=== PATIENT | female | born 1960 | race Caucasian/White ===

== ENCOUNTER 2017-09-22 06:48 | Observation (INO) | payer SELFPAY ==
[2017-09-22] VITALS (8 sets, daily range): BP systolic 128–208; BP diastolic 68–94; PULSE 74–88; RESP 14–28; TEMP 97.9–98.4; O2SAT 97–100
[~2017-09-22 06:48] MED LIST: NORC7.5T PO; PERC5TAB12 PO
[2017-09-22] MEDS ORDERED: SODIUM CHLOR 0.9% 1000 ML INJ 1,000 ML IV ONE (07:34)
--- NOTE | 2017-09-22 07:38 | PD ---
HPI Chief Complaint: General Weakness Time Seen by Provider: 07:34 Travel History International Travel<30 days: No Contact w/Intl Traveler<30days: No Traveled to known affect area: No History of Present Illness HPI 54-year-old female patient presents to the ER today, states that she has been having dizziness since yesterday, nauseous and throwing up. She states it worsens with standing up or getting up, he feels like she is unsteady. She denies any fevers, chest pains, shortness of breath, diarrhea, cough, cold symptoms, or other symptoms. She denies any previous history of symptoms. Modifying Factors: Worse with getting up Associated Signs & Symptoms: Dizziness, nausea and vomiting Risk Factors: None PFSH Past Medical History Medical History: Denies Significant Hx Diminished Hearing: No Menopausal: Yes Past Surgical History Abdominal Surgery: Yes (BREAST AUGMENTATION ABDOMINAL LIPO) Appendectomy: Yes Section: Yes (3) Tonsillectomy: Yes Other Surgery: Yes (LIP IMPLANTS) Social History Alcohol Use: Yes (ETOH DAILY) Tobacco Use: No Substance Use: No Allergies-Medications (Allergen,Severity, Reaction): Coded Allergies: No Known Allergies (Verified Adverse Reaction, Unknown, 09/22/17) Reported Meds & Prescriptions Reported Meds & Active Scripts Active No Active Prescriptions or Reported Medications Review of Systems Except as stated in HPI: all other systems reviewed are Neg Physical Exam Narrative GENERAL: Well-developed elderly white female patient in mild distress. Awake and oriented 3. SKIN: Focused skin assessment warm/dry. HEAD: Atraumatic. Normocephalic. EYES: Pupils equal and round. No scleral icterus. No injection or drainage. ENT: No nasal bleeding or discharge. Mucous membranes pink and moist. NECK: Trachea midline. No JVD. Supple. CARDIOVASCULAR: Regular rate and rhythm. No murmur appreciated. RESPIRATORY: No accessory muscle use. Clear to auscultation. Breath sounds equal bilaterally. GASTROINTESTINAL: Abdomen soft, non-tender, nondistended. Hepatic and splenic margins not palpable. MUSCULOSKELETAL: No obvious deformities. No clubbing. No cyanosis. No edema. NEUROLOGICAL: Awake and alert. No obvious cranial nerve deficits. Motor grossly within normal limits. Normal speech. No pronator drift. PSYCHIATRIC: Appropriate mood and affect; insight and judgment normal. Data Data Last Documented VS Vital Signs Date Time Temp Pulse Resp B/P (MAP) Pulse Ox O2 Delivery O2 Flow Rate FiO2 09/22/17 09:40 74 16 178/88 (118) 100 Room Air 09/22/17 06:51 97.9 Orders Orders Electrocardiogram (09/22/17 07:34) Complete Blood Count With Diff (09/22/17 07:34) Comprehensive Metabolic Panel (09/22/17 07:34) Magnesium (Mg) (09/22/17 07:34) Ckmb (Isoenzyme) Profile (09/22/17 07:34) Troponin I (09/22/17 07:34) Urinalysis - C+S If Indicated (09/22/17 07:34) Chest, Single Ap (09/22/17 07:34) Ct Brain W/O Iv Contrast(Rout) (09/22/17 07:34) Ecg Monitoring (09/22/17 07:34) Iv Access Insert/Monitor (09/22/17 07:34) Oximetry (09/22/17 07:34) Ondansetron Inj (Zofran Inj) (09/22/17 07:45) Sodium Chloride 0.9% Flush (Ns Flush) (09/22/17 07:45) Sodium Chlor 0.9% 1000 Ml Inj (Ns 1000 M (09/22/17 07:34) Orthostatic Vital Signs (09/22/17 07:34) Urine Culture (09/22/17 07:50) Meclizine (Antivert) (09/22/17 09:15) Sulfamet-Trimeth Ds 800-160 Mg (Bactrim (09/22/17 09:15) Labs Laboratory Tests Test 09/22/17 07:50 09/22/17 08:00 Urine Color YELLOW Urine Turbidity HAZY Urine pH 7.5 Urine Specific [place] 1.020 Urine Protein TRACE mg/dL Urine Glucose (UA) NEG mg/dL Urine Ketones NEG mg/dL Urine Occult Blood NEG Urine Nitrite NEG Urine Bilirubin NEG Urine Urobilinogen LESS THAN 2.0 MG/DL Urine Leukocyte Esterase MOD Urine RBC 2 /hpf Urine WBC 15 /hpf Urine Squamous Epithelial Cells 8 /hpf Urine Transitional Epithelial Cells 1 /hpf Urine Renal Epithelial Cells <1 /hpf Urine Bacteria FEW /hpf Urine Mucus FEW /lpf Microscopic Urinalysis Comment CULTURE INDICATED White Blood Count 8.9 TH/MM3 Red Blood Count 4.34 MIL/MM3 Hemoglobin 14.2 GM/DL Hematocrit 40.8 % Mean Corpuscular Volume 94.1 FL Mean Corpuscular Hemoglobin 32.8 PG Mean Corpuscular Hemoglobin Concent 34.8 % Red Cell Distribution Width 13.6 % Platelet Count 302 TH/MM3 Mean Platelet Volume 8.4 FL Neutrophils (%) (Auto) 77.0 % Lymphocytes (%) (Auto) 16.8 % Monocytes (%) (Auto) 5.5 % Eosinophils (%) (Auto) 0.4 % Basophils (%) (Auto) 0.3 % Neutrophils # (Auto) 6.8 TH/MM3 Lymphocytes # (Auto) 1.5 TH/MM3 Monocytes # (Auto) 0.5 TH/MM3 Eosinophils # (Auto) 0.0 TH/MM3 Basophils # (Auto) 0.0 TH/MM3 CBC Comment DIFF FINAL Differential Comment Blood Urea Nitrogen 13 MG/DL Creatinine 0.69 MG/DL Random Glucose 100 MG/DL Total Protein 8.1 GM/DL Albumin 4.0 GM/DL Calcium Level 9.2 MG/DL Magnesium Level 2.0 MG/DL Alkaline Phosphatase 141 U/L Aspartate Amino Transf (AST/SGOT) 21 U/L Alanine Aminotransferase (ALT/SGPT) 33 U/L Total Bilirubin 0.4 MG/DL Sodium Level 135 MEQ/L Potassium Level 4.5 MEQ/L Chloride Level 101 MEQ/L Carbon Dioxide Level 24.2 MEQ/L Anion Gap 10 MEQ/L Estimat Glomerular Filtration Rate 87 ML/MIN Total Creatine Kinase 78 U/L Troponin I LESS THAN 0.02 NG/ML MDM Medical Decision Making Medical Screen Exam Complete: Yes Emergency Medical Condition: Yes Medical Record Reviewed: Yes Interpretation(s) EKG shows NSR, no ST elevation or depression, and no arrhythmias. No significant T-wave inversions. Laboratory Tests Test 09/22/17 07:50 09/22/17 08:00 Urine Turbidity HAZY (CLEAR) Urine Leukocyte Esterase MOD (NEG) Urine WBC 15 /hpf (0-5) Urine Bacteria FEW /hpf (NONE) Urine Mucus FEW /lpf (OCC) Neutrophils (%) (Auto) 77.0 % (16.0-70.0) Alkaline Phosphatase 141 U/L (45-117) Sodium Level 135 MEQ/L (136-145) Estimat Glomerular Filtration Rate 87 ML/MIN (>89) Troponin I LESS THAN 0.02 NG/ML Last [address] 09/22/17733 Signed Impressions: Service Date/Time: September 08:21 - CONCLUSION: 1. Negative examination. Abdullahi Shipman MD Chest X-Ray 09/22/17733 Signed Impressions: Service Date/Time: September 07:50 - CONCLUSION: Trace left base atelectasis. Jose Cooney MD Differential Diagnosis Dizziness, nausea and vomiting: Orthostasis versus gastroenteritis versus dehydration versus metabolic issues versus vertigo versus acute intracranial processes/CVA Narrative Course CT of the brain is negative. EKG did not show any signs of acute dysrhythmias. She does have orthostasis on vital signs. IV fluids was given in the ER. She has a UTI and Bactrim was also given. She was given Zofran. I do not see any obvious focal neurological deficits currently. However, patient states that she is quite wobbly on standing at home and is worried that she is going to fall at home, has nobody else living with her. At this point, my plan would be to treat her further as an observation. Case is discussed with Dr. Nguyen for admission. Diagnosis Primary Impression: Dizziness Additional Impression: UTI (urinary tract infection) Admitting Information Admitting Physician Requests: Admit Scripts No Active Prescriptions or Reported Meds Theodore Munoz MD Sep 22, 2017 07:38
[2017-09-22] MEDS ORDERED: SODIUM CHLORIDE 0.9% FLUSH 10 ML FLUSH IVF PRN (07:45)
[2017-09-22] MEDS ORDERED: ONDANSETRON HCL 4 MG/2 ML VIAL IVP ONE (07:45)
--- NOTE | 2017-09-22 08:05 | RADRPT ---
EXAM DATE/TIME: 09/22/2017 07:50 [facility] COMPARISON: No previous studies available for comparison. INDICATIONS : Palpitations and dizziness. MEDICAL HISTORY : None. SURGICAL HISTORY : None. ENCOUNTER: Initial ACUITY: 1 day PAIN SCORE: 0/10 LOCATION: Bilateral chest FINDINGS: Minimal left base atelectasis. Right lung clear. No effusion or pneumothorax. Heart size normal. CONCLUSION: Trace left base atelectasis. Jose Cooney MD on September 22, 2017 at 8:03 Board Certified Radiologist. This report was verified electronically.
[2017-09-22 08:29] LABS: BILIRUBIN, URINE NEG (NEG); BLOOD, URINE NEG (NEG); GLUCOSE,URINE NEG (NEG); KETONE, URINE NEG (NEG); MUCUS URINE FEW /lpf (OCC); NITRITE,URINE NEG (NEG); PH, URINE 7.5 (5.0-8.5); RENAL EPITHELIAL CELLS <1 /hpf; SQUAMOUS EPITHELIAL CELL URINE 8 /hpf (0-5); TRANSITIONAL EPI CELLS, URINE 1 /hpf; URINE COLOR YELLOW (YELLW/STRAW); URINE LEUKOCYTE ESTERASE MOD (NEG)
[2017-09-22 08:30] LABS: BACTERIA, URINE FEW /hpf
[2017-09-22 08:32] LABS: AUTOMATED NEUTROPHIL # 6.8 TH/MM3 (1.8-7.7); BASOPHIL % 0.3 % (0.0-2.0); EOSINOPHIL % 0.4 % (0.0-4.0); HEMATOCRIT 40.8 % (35.0-46.0); HEMOGLOBIN 14.2 GM/DL (11.6-15.3); LYMPH % 16.8 % (9.0-44.0); LYMPHOCYTE # 1.5 TH/MM3 (1.0-4.8); MEAN CELL VOLUME 94.1 FL (80.0-100.0); MEAN CORPUSCULAR HEMOGLOBIN 32.8 PG (27.0-34.0); MEAN CORPUSCULAR HGB CONC 34.8 % (32.0-36.0); MEAN PLATELET VOLUME 8.4 FL (7.0-11.0); MONO % 5.5 % (0.0-8.0); MONOCYTE # 0.5 TH/MM3 (0-0.9); PLATELET COUNT 302 TH/MM3 (150-450); RED BLOOD COUNT 4.34 MIL/MM3 (4.00-5.30); RED CELL DISTRIBUTION WIDTH 13.6 % (11.6-17.2); WHITE BLOOD COUNT 8.9 TH/MM3 (4.0-11.0)
--- NOTE | 2017-09-22 08:51 | RADRPT ---
EXAM DATE/TIME: 09/22/2017 08:21 [facility] COMPARISON: No previous studies available for comparison. INDICATIONS : Dizziness and nausea for 2 days. RADIATION DOSE: 33.97 CTDIvol (mGy) MEDICAL HISTORY : None SURGICAL HISTORY : None. ENCOUNTER: Initial ACUITY: 1 day PAIN SCALE: 0/10 LOCATION: cranial TECHNIQUE: Multiple contiguous axial images were obtained of the head. Using automated exposure control and adj ustment of the mA and/or kV according to patient size, radiation dose was kept as low as reasonably a chievable to obtain optimal diagnostic quality images. DICOM format image data is available electro nically for review and comparison. FINDINGS: CEREBRUM: The ventricles are normal for age. No evidence of midline shift, mass lesion, hemorrhage or acute in farction. No extra-axial fluid collections are seen. POSTERIOR FOSSA: The cerebellum and brainstem are intact. The 4th ventricle is midline. The cerebellopontine angle i s unremarkable. EXTRACRANIAL: The visualized portion of the orbits is intact. SKULL: The calvaria is intact. No evidence of skull fracture. CONCLUSION: 1. Negative examination. Abdullahi Shipman MD on September 22, 2017 at 8:48 Board Certified Radiologist. This report was verified electronically.
[2017-09-22 08:52] LABS: ALKALINE PHOSPHATASE 141 U/L (45-117); ALT (GPT) 33 U/L (10-53); AST (GOT) 21 U/L (15-37); BICARBONATE 24.2 MEQ/L (21.0-32.0); BLOOD UREA NITROGEN 13 MG/DL (7-18); CALCIUM 9.2 MG/DL (8.5-10.1); CHLORIDE 101 MEQ/L (98-107); CREATININE 0.69 MG/DL (0.50-1.00); GLOMERULAR FILTRATION RATE 87 ML/MIN (>89); GLUCOSE,RANDOM 100 MG/DL (74-106); SODIUM (NA) 135 MEQ/L (136-145); TOTAL BILIRUBIN ADULT 0.4 MG/DL (0.2-1.0); TOTAL PROTEIN 8.1 GM/DL (6.4-8.2); TROPONIN I LESS THAN 0.02 NG/ML (0.02-0.05)
[2017-09-22] MEDS ORDERED: SULFAMETHOXAZOLE-TRIMETHOPRIM DS 800-160 MG TAB PO ONE (09:15)
[2017-09-22] MEDS ORDERED: MECLIZINE HCL 25 MG TAB PO ONE (09:15)
--- NOTE | 2017-09-22 10:28 | HHI.HP ---
HPI Service [facility] Hospitalists Primary Care Physician No Primary Care Physician Admission Diagnosis orthostasis/UTI/dizziness Diagnoses: Chief Complaint: Dizziness Nausea/vomiting Travel History International Travel<30 Days: No Contact w/Intl Traveler <30 Da: No Traveled to Known Affected Are: No History of Present Illness Written by Amy Adler, acting as scribe for Dr. Powers on 09/22/17 at 10: 15. This is a 57-year-old female without a significant past medical history who presents to [facility] ED with complaints of sudden onset of dizziness 1 day. Patient states that yesterday she developed sudden onset of dizziness that continued to progress throughout the day despite her resting. Patient states became so severe that she is unable to walk or even stand up. She she endorses 2 episodes of nausea and vomiting early this morning. She states that she is also had blurry vision and double vision. She denies any complaints of headache, weakness, numbness/tingling or slurred speech. She reports tinnitus in the right ear this morning as well as some right ear pain yesterday for which she took Motrin. She denies any hearing loss. She denies any drainage from the ear. Patient denies any worsening of dizziness turning her head left to right but does report exacerbation sitting up. Patient's only other complaint is intermittent hot flashes for the past week much worse last night causing her to sweat so badly she turned on the air-conditioning despite the cold weather. Patient denies any recent illness. She states she is very healthy. She goes to the gym 4 times a week. She does not take any medications. She denies any drug use. In the ED, CT of the head was obtained which was unremarkable. Review of Systems Except as stated in HPI: all other systems reviewed are Neg Past Family Social History Past Medical History Patient denies any previous medical history Past Surgical History 3 Appendectomy Breast augmentation Reported Medications Patient denies taking any medications at home Allergies: Coded Allergies: No Known Allergies (Verified Allergy, Unknown, 09/22/17) Active Ordered Medications Current Medications Medications (Trade) Dose Ordered Sig/Nelly Route Start Time Stop Time Status Last Admin (NS Flush) 2 ml UNSCH PRN IVF 09/22/17 07:45 Sodium Chloride 1,000 ml @ 100 mls/hr Q10H ONCE IV 09/22/17 07:34 09/22/17 17:33 09/22/17 07:54 Family History Father, age 83, healthy Social History Patient has remote history of tobacco use having quit more than 35 years ago. She admits to alcohol consumption of several classes of [place]ardon[place] nightly. She denies any illicit drug use. Patient states she is very active. She goes gym 4 times a week. Physical Exam Vital Signs Vital Signs Date Time Temp Pulse Resp B/P (MAP) Pulse Ox O2 Delivery O2 Flow Rate FiO2 09/22/17 09:40 74 16 178/88 (118) 100 Room Air 09/22/17 07:54 67 14 180/80 (113) 74 18 171/80 (110) 77 28 153/91 (111) 09/22/17 07:48 (130) Room Air 09/22/17 07:26 80 20 203/94 (130) 100 Room Air 184/92 (122) 09/22/17 07:23 77 09/22/17 06:51 97.9 79 16 174/85 (114) 100 Physical Exam GENERAL: This is a well-nourished, well-developed female patient, in no apparent distress. Awake and alert. Upset, tearful. SKIN: No rashes, ecchymoses or lesions. Cool and dry. HEAD: Atraumatic. Normocephalic. No temporal or scalp tenderness. EYES: Pupils equal round and reactive. Extraocular motions intact. No scleral icterus. No injection or drainage. ENT: Nose without bleeding or purulent drainage. Small amount of cerumen noted in left ear canal otherwise normal. Right ear nontender, canal unremarkable, TM normal, no evidence of infection, no fluid appreciated. Throat without erythema, tonsillar hypertrophy or exudate. Uvula midline. Airway patent. NECK: Trachea midline. No lymphadenopathy. Supple, nontender, no meningeal signs. CARDIOVASCULAR: Regular rate and rhythm without murmurs, gallops, or rubs. RESPIRATORY: Clear to auscultation. Breath sounds equal bilaterally. No wheezes , rales, or rhonchi. GASTROINTESTINAL: Abdomen soft, non-tender, nondistended. No hepato-splenomegaly , or palpable masses. No guarding. MUSCULOSKELETAL: Extremities without clubbing, cyanosis, or edema. No joint tenderness, effusion, or edema noted. No calf tenderness. NEUROLOGICAL: Awake and alert. Cranial nerves II through XII grossly intact. Motor and sensory grossly within normal limits. Five out of 5 muscle strength in all muscle groups. No focal neurologic findings. Normal speech. Laboratory Laboratory Tests Test 09/22/17 07:50 09/22/17 08:00 Urine Color YELLOW Urine Turbidity HAZY Urine pH 7.5 Urine Specific [place] 1.020 Urine Protein TRACE Urine Glucose (UA) NEG Urine Ketones NEG Urine Occult Blood NEG Urine Nitrite NEG Urine Bilirubin NEG Urine Urobilinogen LESS THAN 2.0 Urine Leukocyte Esterase MOD Urine RBC 2 Urine WBC 15 Urine Squamous Epithelial Cells 8 Urine Transitional Epithelial Cells 1 Urine Renal Epithelial Cells <1 Urine Bacteria FEW Urine Mucus FEW Microscopic Urinalysis Comment CULTURE INDICATED White Blood Count 8.9 Red Blood Count 4.34 Hemoglobin 14.2 Hematocrit 40.8 Mean Corpuscular Volume 94.1 Mean Corpuscular Hemoglobin 32.8 Mean Corpuscular Hemoglobin Concent 34.8 Red Cell Distribution Width 13.6 Platelet Count 302 Mean Platelet Volume 8.4 Neutrophils (%) (Auto) 77.0 Lymphocytes (%) (Auto) 16.8 Monocytes (%) (Auto) 5.5 Eosinophils (%) (Auto) 0.4 Basophils (%) (Auto) 0.3 Neutrophils # (Auto) 6.8 Lymphocytes # (Auto) 1.5 Monocytes # (Auto) 0.5 Eosinophils # (Auto) 0.0 Basophils # (Auto) 0.0 CBC Comment DIFF FINAL Differential Comment Blood Urea Nitrogen 13 Creatinine 0.69 Random Glucose 100 Total Protein 8.1 Albumin 4.0 Calcium Level 9.2 Magnesium Level 2.0 Alkaline Phosphatase 141 Aspartate Amino Transf (AST/SGOT) 21 Alanine Aminotransferase (ALT/SGPT) 33 Total Bilirubin 0.4 Sodium Level 135 Potassium Level 4.5 Chloride Level 101 Carbon Dioxide Level 24.2 Anion Gap 10 Estimat Glomerular Filtration Rate 87 Total Creatine Kinase 78 Troponin I LESS THAN 0.02 Date/Time Source Procedure Growth Status 09/22/17 07:50 Urine Random Urine Urine Culture Pending Received Result Diagram: 09/22/17 0800 09/22/17 0800 Imaging Last Impressions Head CT 09/22/17733 Signed Impressions: Service Date/Time: September 08:21 - CONCLUSION: 1. Negative examination. Abdullahi Shipman MD Chest X-Ray 09/22/17733 Signed Impressions: Service Date/Time: September 07:50 - CONCLUSION: Trace left base atelectasis. Jose Cooney MD Capmellissai VTE Risk Assessment Caprini VTE Risk Assessment: No/Low Risk (score <= 1) Caprini Risk Assessment Model Point Value = 1 Point Value = 2 Point Value = 3 Point Value = 5 Age 41-60 Minor surgery BMI > 25 kg/m2 Swollen legs Varicose veins or History of unexplained or recurrent spontaneous Oral contraceptives or hormone replacement Sepsis (< 1 month) Serious lung disease, including pneumonia (< 1 month) Abnormal pulmonary function Acute myocardial infarction Congestive heart failure (< 1 month) History of inflammatory bowel disease Medical patient at bed rest Age 61-74 Arthroscopic surgery Major open surgery (> 45 min) Laparoscopic surgery (> 45 min) Malignancy Confined to bed (> 72 hours) Immobilizing plaster cast Central venous access Age >= 75 History of VTE Family history of VTE Factor V Leiden Prothrombin [id number] Lupus anticoagulant Anticardiolipin antibodies Elevated serum homocysteine Heparin-induced thrombocytopenia Other congenital or acquired thrombophilia Stroke (< 1 month) Elective arthroplasty Hip, pelvis, or leg fracture Acute spinal cord injury (< 1 month) Prophylaxis Regimen Total Risk Factor Score Risk Level Prophylaxis Regimen 0-1 Low Early ambulation 2 Moderate Order ONE of the following: *Sequential Compression Device (SCD) *Heparin 5000 units SQ BID 3-4 Higher Order ONE of the following medications: *Heparin 5000 units SQ TID *Enoxaparin/Lovenox 40 mg SQ daily (WT < 150 kg, CrCl > 30 mL/min) *Enoxaparin/Lovenox 30 mg SQ daily (WT < 150 kg, CrCl > 10-29 mL/min) *Enoxaparin/Lovenox 30 mg SQ BID (WT < 150 kg, CrCl > 30 mL/min) AND/OR *Sequential Compression Device (SCD) 5 or more Highest Order ONE of the following medications: *Heparin 5000 units SQ TID (Preferred with Epidurals) *Enoxaparin/Lovenox 40 mg SQ daily (WT < 150 kg, CrCl > 30 mL/min) *Enoxaparin/Lovenox 30 mg SQ daily (WT < 150 kg, CrCl > 10-29 mL/min) *Enoxaparin/Lovenox 30 mg SQ BID (WT < 150 kg, CrCl > 30 mL/min) AND *Sequential Compression Device (SCD) Assessment and Plan Assessment and Plan 57-year-old female without a significant past medical history who presents to [facility] ED with complaints of sudden onset of dizziness, N/V and vision changes 1 day. Dizziness, N/V, vision changes, tinnitus right ear and unsteady gait Possible vertigo and/or orthostatic hypotension CT of the head unremarkable, images personally reviewed Obtain MRI of the brain and US carotids positive orthostatic BP measurements. Fall precautions. Trial of Meclizine IV Zofran prn PT eval/tx Hypertensive Patient denies any documented history of hypertension Possibly situational, related to anxiety Vasotec 1.25 mg IV prn with parameters Will continue to monitor BP and may initiate treatment if indicated Bacteriuria UA with moderate leukocytes, 15 white blood cells and few bacteria, culture indicated. Patient asymptomatic Follow up on urine culture results Hyponatremia Mild Patient treated with IV fluids in the ED Monitor DVT prophylaxis Bilateral SCD/LYDIA hose The above note was scibed by Ms.Shannon Adler ( EVAN). I attest that I had a [id number] encounter with the patient on the same day , and personally performed the physical exam and medical decision making and I reviewed the findings and the plan with the patient. Discussed Condition With ED physician, patient Amy Adler Sep 22, 2017 10:28 Lora Powers MD Sep 22, 2017 11:08
[2017-09-22] MEDS ORDERED: ENALAPRILAT 1.25 MG/ML VIAL IV PUSH PRN (10:30)
--- NOTE | 2017-09-22 11:42 | RADRPT ---
EXAM DATE/TIME: 09/22/2017 10:58 [facility] COMPARISON: No previous studies available for comparison. INDICATIONS : Transient ischemic attack. MEDICAL HISTORY : ETOH abuse. SURGICAL HISTORY : Tonsillectomy. Appendectomy. section. Breast augmentation. Abdominal lipo. Lip implants. ENCOUNTER: Initial ACUITY: 1 day PAIN SCORE: 10 LOCATION: Bilateral neck PEAK SYSTOLIC VELOCITIES (cm/sec): ICA/CCA RATIO: Right: 1.5 Left: 1.2 ICA: Right: 119 Left: 117 CCA: Right: 80 Left: 98 ECA: Right: 84 Left: 104 VERTEBRAL: Right: 74 antegrade Left: 82 antegrade Elevated flow velocities and ICA/CCA ratios have been found to correlate with increased degrees of vessel stenosis, calculated as percentage of diameter relative to a normal segment of distal ICA/CCA FINDINGS: RIGHT CAROTID: No significant stenosis is visualized. The waveforms are within normal limits. LEFT CAROTID: No significant stenosis is visualized. The waveforms are within normal limits. VERTEBRAL ARTERIES: Antegrade flow is seen in both vertebral arteries. MISCELLANEOUS: None. CONCLUSION: No hemodynamically significant stenosis. Baron Perrin MD on September 22, 2017 at 11:39 Board Certified Radiologist. This report was verified electronically.
[2017-09-22] MEDS ORDERED: GADODIAMIDE PF 287 MG/ML 5 ML VIAL (for RAD MRI) IV PUSH ONE (15:01)
--- NOTE | 2017-09-22 15:37 | RADRPT ---
EXAM DATE/TIME: 09/22/2017 14:45 [facility] COMPARISON: No previous studies available for comparison. INDICATIONS : Dizziness. CONTRAST: 12 cc Omniscan (gadodiamide) IV MEDICAL HISTORY : None. SURGICAL HISTORY : section. Appendectomy. Tonsillectomy. Breast augmentation. Liposuction. ENCOUNTER: Subsequent ACUITY: 1 day PAIN SCORE: 3/10 LOCATION: cranial TECHNIQUE: Multiplanar, multisequence MRI of the brain was performed both prior to and following the administrat ion of paramagnetic contrast. FINDINGS: CEREBRUM: The ventricles are normal for age. No evidence of midline shift, mass lesion, hemorrhage or acute in farction. No extraaxial fluid collections are seen. The pituitary gland and suprasellar cistern are normal in configuration. WHITE MATTER: No significant signal abnormalities are seen in the white matter. POSTERIOR FOSSA: The cerebellum and brainstem are intact. The 4th ventricle is midline. The cerebellopontine angle is unremarkable. The cerebellar tonsils are normal in position. DIFFUSION IMAGING: No focal areas of restricted diffusion are seen. No evidence of acute infarction. EXTRACRANIAL: The visualized portions of the orbits and paranasal sinuses are unremarkable. POST-CONTRAST: No abnormal areas of parenchymal or dural enhancement. No evidence of blood-brain barrier breakdown. CONCLUSION: 1. Negative examination. Abdullahi Shipman MD on September 22, 2017 at 15:31 Board Certified Radiologist. This report was verified electronically.
[2017-09-22] MEDS: MECLIZINE HCL 25 MG TAB PO PRN (18:53)
[2017-09-23 04:53] VITALS: BP 129/61; PULSE 70; RESP 18; TEMP 98; O2SAT 97
[2017-09-23] MEDS ORDERED: WALKER WHEELS/F1 MIS (07:49)
--- NOTE | 2017-09-23 07:50 | HHI.FF ---
Face to Face Verification Diagnosis: (1) Dizziness (2) Unsteady gait (3) Vertigo Home Health Nursing Order: Medical education Signs/symptoms of disease process Medication education-adverse effect Nursing assessment with vital signs I have seen patient Tracey Holder on 09/23/17. My clinical findings support the need for the requested home health care services because: Deconditioned w/ increased weakness High risk of falls I certify that my clinical findings support that this patient is homebound because: Unsteady gait/balance Unsafe to leave home unassisted Unable to use public transportation Amy Adler Sep 23, 2017 07:50
[2017-09-23 08:17] VITALS: BP 142/66; PULSE 70; RESP 20; TEMP 98.2; O2SAT 96
[2017-09-23] MEDS: MECLIZINE HCL 25 MG TAB PO PRN (08:41)
[2017-09-23] MEDS ORDERED: INFLUENZA VIRUS VACCINE (QUADRIVALENT) 0.5 ML SYR IM ONE (10:00)
[2017-09-23 11:55] VITALS: BP 159/85; PULSE 73; RESP 18; TEMP 98.6; O2SAT 94
--- NOTE | 2017-09-23 12:26 | HHI.PR ---
Subjective Remarks in no acute distress. denies chest pain or sob. dizziness is better. BP trend improved. Objective Vitals Vital Signs Date Time Temp Pulse Resp B/P (MAP) Pulse Ox O2 Delivery O2 Flow Rate FiO2 09/23/17 11:55 98.6 73 18 159/85 (109) 94 09/23/17 08:17 98.2 70 20 142/66 (91) 96 09/23/17 04:53 98.0 70 18 129/61 (83) 97 09/22/17 21:01 98.1 86 18 129/68 (88) 97 09/22/17 15:56 98.4 83 20 128/68 (88) 99 09/22/17 14:30 88 151/76 (101) 09/22/17 13:30 98.1 75 22 208/92 (130) 97 09/22/17 12:42 I/O 09/22/17 09/22/17 09/22/17 09/23/17 09/23/17 09/23/17 07:00 15:00 23:00 07:00 15:00 23:00 Intake Total 240 ml Balance 240 ml Intake Oral 240 ml Result Diagram: 09/22/17 0800 09/22/17 0800 Imaging Last Impressions Head CT 09/22/17 0734 Signed Impressions: Service Date/Time: September 08:21 - CONCLUSION: 1. Negative examination. Abdullahi Shipman MD Chest X-Ray 09/22/17 0734 Signed Impressions: Service Date/Time: September 07:50 - CONCLUSION: Trace left base atelectasis. Jose Cooney MD Carotid Artery Ultrasound 09/22/17 0000 Signed Impressions: Service Date/Time: September 10:58 - CONCLUSION: No hemodynamically significant stenosis. Baron Perrin MD Brain MRI 09/22/17 0000 Signed Impressions: Service Date/Time: September 14:45 - CONCLUSION: 1. Negative examination. Abdullahi Shipman MD Objective Remarks GENERAL: This is a well-nourished, well-developed patient, in no apparent distress. CARDIOVASCULAR: Regular rate and regular rhythm without murmurs, gallops, or rubs. RESPIRATORY: Clear to auscultation. Breath sounds equal bilaterally. No wheezes , rales, or rhonchi. GASTROINTESTINAL: Abdomen soft, non-tender, nondistended. Normal, active bowel sounds MUSCULOSKELETAL: Extremities without clubbing, cyanosis, or edema. NEURO: Alert & Oriented x4 to person, place, time, situation. Moves all ext x4 Medications and IVs Inpatient Medications Enalaprilat (Vasotec Inj) 1.25 mg Q8H PRN IV PUSH SBP>200, DBP>110 Last administered on 09/22/17at 13:36; Start 09/22/17 at 10:30 Influenza Virus Vaccine (Flu (Quadrivalent) Vaccine Inj) 0.5 ml ONCE ONCE IM ; Start 09/23/17 at 10:00; Stop 09/23/17 at 10:02; Status DC Meclizine HCl (Antivert) 25 mg Q8H PRN PO DIZZINESS Last administered on at 08:41; Start 09/22/17 at 10:30 Ondansetron HCl (Zofran Inj) 4 mg ONCE ONCE IVP Last administered on 09/22/17at 07:54; Start 09/22/17 at 07:45; Stop 09/22/17 at 07:46; Status DC Sodium Chloride 1,000 ml @ 100 mls/hr Q10H ONCE IV Last administered on at 07:54; Start 09/22/17 at 07:34; Stop 09/22/17 at 17:33; Status DC Sodium Chloride (NS Flush) 2 ml UNSCH PRN IVF FLUSH AFTER USING IV ACCESS; Start 09/22/17 at 07:45 Trimethoprim/ Sulfamethoxazole (Bactrim Ds 800-160 Mg) 1 tab ONCE ONCE PO Last administered on 09/22/17at 09:34; Start 09/22/17 at 09:15; Stop 09/22/17 at 09: 16; Status DC A/P Assessment and Plan A/P possible vertigo CT of the head unremarkable, images personally reviewed MRI brain negative. Fall precautions. Trial of Meclizine IV Zofran prn PT eval/tx Hypertension; BP has much improved. Patient denies any documented history of hypertension Possibly situational, related to anxiety Vasotec 1.25 mg IV prn with parameters BP monitoring as outpatient. Bacteriuria UA with moderate leukocytes, 15 white blood cells and few bacteria, culture indicated. Patient asymptomatic Follow up on urine culture results Hyponatremia Mild Patient treated with IV fluids in the ED Monitor DVT prophylaxis Bilateral SCD/LYDIA hose Discharge Planning dc home - today with [facility]. see med list. f/u ; pcp. Lora Powers MD Sep 23, 2017 12:25
[2017-09-23] MEDS ORDERED: MECL1TAB42 PO (14:36)
[2017-09-23 16:27] VITALS: BP 148/80; PULSE 70; RESP 20; TEMP 97.9; O2SAT 96
--- NOTE | 2017-09-23 19:14 | EKG ---
Date Performed: 09/22/2017 Time Performed: 08:08:16 PTAGE: 57 years EKG: Sinus rhythm NORMAL ECG PREVIOUS TRACING : 09/22/2017 08.07 DOCTOR: Adolph Rojas Interpretating Date/Time 09/27/2017 08:18:02
[2017-09-23 19:43] VITALS: BP_SYST 163; BP_SYST 180; BP_SYST 187; BP_DIAS 78; BP_DIAS 87; PULSE 84; RESP 16; TEMP 98.3; O2SAT 98
[2017-09-23 23:31] VITALS: BP_SYST 162; BP_SYST 164; BP_SYST 170; BP_DIAS 82; BP_DIAS 87; BP_DIAS 91; PULSE 78; RESP 17; TEMP 97.7; O2SAT 97
[2017-09-24 03:48] VITALS: BP_SYST 151; BP_SYST 156; BP_SYST 166; BP_DIAS 87; BP_DIAS 88; BP_DIAS 92; PULSE 74; RESP 17; TEMP 98; O2SAT 97
[2017-09-24 08:00] VITALS: BP_SYST 167; BP_SYST 168; BP_DIAS 82; BP_DIAS 87; PULSE 73; RESP 20; TEMP 96.5; O2SAT 100
[2017-09-24 12:00] VITALS: BP 153/86; PULSE 85; RESP 20; TEMP 97.4; O2SAT 98
[2017-09-24] MEDS ORDERED: AMOX250C CHEW (12:58)
--- NOTE | 2017-09-24 13:00 | HHI.PR ---
Subjective Remarks in no acute distress. dizziness has improved. complaining of mild pain to the right jaw. no fever. Objective Vitals Vital Signs Date Time Temp Pulse Resp B/P (MAP) Pulse Ox O2 Delivery O2 Flow Rate FiO2 09/24/17 08:00 96.5 73 20 167/82 (110) 100 167/82 (110) 168/87 (114) 09/24/17 03:48 98.0 74 17 166/92 (116) 97 156/87 (110) 151/88 (109) 09/23/17 23:31 97.7 78 17 170/82 (111) 97 164/87 (112) 162/91 (114) 09/23/17 19:43 98.3 84 16 163/78 (106) 98 187/87 (120) 180/87 (118) 09/23/17 16:27 97.9 70 20 148/80 (102) 96 I/O 09/23/17 09/23/17 09/23/17 09/24/17 09/24/17 09/24/17 07:00 15:00 23:00 07:00 15:00 23:00 Intake Total 2 ml Balance 2 ml IV Total 2 ml # Voids 2 2 Result Diagram: 09/22/17 0800 09/22/17 0800 Imaging Last Impressions Head CT 09/22/17733 Signed Impressions: Service Date/Time: September 08:21 - CONCLUSION: 1. Negative examination. Abdullahi Shipman MD Chest X-Ray 09/22/17733 Signed Impressions: Service Date/Time: September 07:50 - CONCLUSION: Trace left base atelectasis. Jose Cooney MD Carotid Artery Ultrasound 09/22/17 Signed Impressions: Service Date/Time: September 10:58 - CONCLUSION: No hemodynamically significant stenosis. Baron Perrin MD Brain MRI 09/22/17 Signed Impressions: Service Date/Time: September 14:45 - CONCLUSION: 1. Negative examination. Abdullahi Shipman MD Objective Remarks GENERAL: This is a well-nourished, well-developed patient, in no apparent distress. CARDIOVASCULAR: Regular rate and regular rhythm without murmurs, gallops, or rubs. RESPIRATORY: Clear to auscultation. Breath sounds equal bilaterally. No wheezes , rales, or rhonchi. GASTROINTESTINAL: Abdomen soft, non-tender, nondistended. Normal, active bowel sounds MUSCULOSKELETAL: Extremities without clubbing, cyanosis, or edema. NEURO: Alert & Oriented x4 to person, place, time, situation. Moves all ext x4 Medications and IVs Inpatient Medications Enalaprilat (Vasotec Inj) 1.25 mg Q8H PRN IV PUSH SBP>200, DBP>110 Last administered on 09/22/17at 13:36; Start 09/22/17 at 10:30 Influenza Virus Vaccine (Flu (Quadrivalent) Vaccine Inj) 0.5 ml ONCE ONCE IM ; Start 09/23/17 at 10:00; Stop 09/23/17 at 10:02; Status DC Meclizine HCl (Antivert) 25 mg Q8H PRN PO DIZZINESS Last administered on at 08:41; Start 09/22/17 at 10:30 Ondansetron HCl (Zofran Inj) 4 mg ONCE ONCE IVP Last administered on 09/22/17at 07:54; Start 09/22/17 at 07:45; Stop 09/22/17 at 07:46; Status DC Sodium Chloride 1,000 ml @ 100 mls/hr Q10H ONCE IV Last administered on at 07:54; Start 09/22/17 at 07:34; Stop 09/22/17 at 17:33; Status DC Sodium Chloride (NS Flush) 2 ml UNSCH PRN IVF FLUSH AFTER USING IV ACCESS; Start 09/22/17 at 07:45 Trimethoprim/ Sulfamethoxazole (Bactrim Ds 800-160 Mg) 1 tab ONCE ONCE PO Last administered on 09/22/17at 09:34; Start 09/22/17 at 09:15; Stop 09/22/17 at 09: 16; Status DC A/P Assessment and Plan A/P possible vertigo - improved. CT of the head unremarkable. MRI brain negative. Fall precautions. Trial of Meclizine IV Zofran prn PT eval/tx Hypertension; will start on amlodipine- Patient denies any documented history of hypertension Possibly situational, related to anxiety BP monitoring as outpatient. Bacteriuria UA with moderate leukocytes, 15 white blood cells and few bacteria, culture indicated. Patient asymptomatic Follow up on urine culture results Hyponatremia Mild Patient treated with IV fluids in the ED Monitor possible tooth abscess- discharge on amoxicillin- f/u with dentist as outpatient. DVT prophylaxis Bilateral SCD/LYDIA hose Discharge Planning dc home - today with [facility]- after seen and cleared by PT. see med list. f/u ; pcp. Lora Powers MD Sep 24, 2017 13:00
[2017-09-24] MEDS ORDERED: AMLO5TAB2 PO (13:01)
== END 2017-09-24 14:41 | disposition home or self-care (01) ==
LOC: NEPE 06:48 → NEDA 10:03 → NEPHCDU 13:40
PROVIDERS: ADMIT Internal Medicine; ATTEND Internal Medicine
DX: R53.1 Weakness (principal); R11.2 Nausea with vomiting, unspecified; N39.0 Urinary tract infection, site not specified; I10 Essential (primary) hypertension; E87.1 Hypo-osmolality and hyponatremia; R82.71 Bacteriuria; R68.84 Jaw pain; R00.2 Palpitations; R42 Dizziness and giddiness; H53.2 Diplopia
CPT/HCPCS: 70450; 70553; 71045; 80053; 81001; 82550; 83735; 84484; 85025; 87086; 93005; 93880; 96361; 96374; 96375; 97162; 97530; 99285; A9579; G0378; G8987; G8988; J2405; J7030